=== PATIENT | male | born 1995 | race African-American/Black ===

== ENCOUNTER 2019-08-28 19:59 | Emergency (ER) | payer OTHER ==
[~2019-08-28] VITALS: Ht 182.9 cm; Wt 75.3 kg
--- NOTE | 2019-08-28 20:41 | NUR ---
PT BIBSELF C/O SORE THROAT, HIGH FEVER, N/V, LOSS OF APPETITE, CONGESTION, AND NON PRODUCTIVE COUGH. PT DENIES SHORTNESS OF BREATH. AAOX4, SKIN WARM AND INTACT, RESPIRATION EVEN AND UNLABORED, NO ACUTE DISTRESS NOTED AT THIS TIME.
[2019-08-28] MEDS ORDERED: IBUPROFEN 600 MG TABLET PO ONE ×2 (20:48→21:00)
--- NOTE | 2019-08-28 20:52 | NUR ---
FLU SWAB AND STREP SWAB COLLECTED AND SENT TO LAB
[2019-08-28 21:57] VITALS: BP 120/84
--- NOTE | 2019-08-28 21:58 | NUR ---
Patient discharged to home in stable condition. Written and verbal after care instructions given. Patient verbalizes understanding of instruction. PT ambulatory with a steady gait
== END 2019-08-28 21:58 | disposition home or self-care (01) ==
LOC: ER 20:02
DX: J06.9 Acute upper respiratory infection, unspecified (principal); Z88.2 Allergy status to sulfonamides
CPT/HCPCS: 86403-TC; 87070-TC